=== PATIENT | female | born 1985 | race Caucasian/White ===

== ENCOUNTER 2024-08-07 07:03 | Day surgery (SDC) | payer MEDICAID ==
[2024-08-03 14:01] LABS: BASOPHILS # (AUTO) 0.1 X10'3 (0-0.2); BASOPHILS % (AUTO) 0.5 % (0-1); EOSINOPHILS # (AUTO) 0.1 X10'3 (0-0.9); EOSINOPHILS % (AUTO) 0.6 % (0-6); LYMPHOCYTES # (AUTO) 2.5 X10'3 (1.1-4.8); LYMPHOCYTES % (AUTO) 18.1 % (21-51); MEAN CORPUSCULAR HEMOGLOBIN 29.7 PG (27.0-31.0); MEAN CORPUSCULAR HGB CONC 32.5 g/dL (33.0-36.5); MEAN CORPUSCULAR VOLUME 91.2 FL (78-98); MEAN PLATELET VOLUME 7.7 FL (7.4-10.4); MONOCYTES # (AUTO) 0.8 X10'3 (0-0.9); MONOCYTES % (AUTO) 5.8 % (2-12); NEUTROPHILS # (AUTO) 10.3 X10'3 (1.8-7.7); PRE OP HEMATOCRIT 43.1 % (35.0-45.0); PRE OP PLATELET COUNT 298 X10'3 (140-440); PRE OP WHITE BLOOD COUNT 13.8 10'3 (4.8-10.8); RED BLOOD COUNT 4.73 X10'6 (4.20-5.60); RED CELL DISTRIBUTION WIDTH 13.4 % (11.5-14.5)
[2024-08-03 14:21] LABS: ALBUMIN 3.6 G/DL (3.4-5.0); ALKALINE PHOSPHATASE 46 IU/L (46-116); BLOOD UREA NITROGEN 25 MG/DL (7-18); BUN/CREATININE RATIO 23.8 (10.0-20.0); CHLORIDE 104 MMOL/L (99-107); CREATININE 1.05 MG/DL (0.40-0.90); PRE OP ALT 38 U/L (30-65); PRE OP ANION GAP 5 (8-16); PRE OP AST 19 U/L (10-37); PRE OP BILIRUB, TOTAL 0.2 MG/DL (0.0-1.0); PRE OP GLUCOSE 99 MG/DL (70-104); PRE OP POTASSIUM 4.3 MMOL/L (3.4-5.1); PRE OP SODIUM 142 MMOL/L (135-145); TOTAL CARBON DIOXIDE 33.5 MMOL/L (24-32); TOTAL PROTEIN 7.1 G/DL (6.4-8.2); eGFR 58 ML/MIN
[2024-08-03 14:32] LABS: HCG SERUM QL NEGATIVE
[~2024-08-07] VITALS: Ht 157.5 cm; Wt 75.5 kg
[2024-08-07] VITALS (9 sets, daily range): BP systolic 107–131; BP diastolic 62–85; PULSE 44–99; RESP 10–17; TEMP 98.1; O2SAT 94–100
[~2024-08-07 07:03] MED LIST: ASPI-611 PO; BUPIVAcaine 0.25% w/Epi /PF 30ml vial ONE; BUPIVAcaine 2.5mg/ml inj 50ml vial (contains preservative) ONE; CARV3.122 PO; CHOL200012 PO; DOCUMENT DATE & TIME OF BETA-BLOCKER PO ONE; FURO40TA4 PO; LEVO25CA4 PO; LIDOcaine 1% 30ml preserv. free vial ONE; LISI2.5T14 PO; LURA20TA8 PO; ROSU5TAB51 PO; SPIR25TA5 PO; VENL75TA90 PO; ceFAZolin 2gm in dextrose, iso 50 ML IV ONE
[2024-08-07] MEDS: famotidine 20mg tablet PO ONE (07:53)
[2024-08-07] MEDS: ringers solution, lacted 1,000 ML IV SCH (07:54)
[2024-08-07] MEDS: LIDOcaine 1% 30ml preserv. free vial IJ ONE (08:27)
[2024-08-07] MEDS ORDERED: sevoflurane 250ml liquid IH ONE (08:32)
[2024-08-07] MEDS ORDERED: hydrALAZINE 20mg/ml inj. IV PRN (08:35)
[2024-08-07] MEDS ORDERED: ondansetron/PF 4mg/2ml inj IV PRN (08:35)
[2024-08-07] MEDS ORDERED: meperidine/PF 25mg/ml syringe IV PRN (08:35)
[2024-08-07] MEDS ORDERED: ringers solution, lacted 1,000 ML IV SCH (08:35)
[2024-08-07] MEDS ORDERED: proCHLORperazine 10 MG/2 ml inj IV PRN (08:35)
[2024-08-07] MEDS ORDERED: labetalol 20mg/4ml (5mg/ml) syringe IV PRN (08:35)
[2024-08-07] MEDS ORDERED: acetaminophen 1,000mg/100ml IV 100 ML IV PRN (08:35)
[2024-08-07] MEDS ORDERED: HYDROmorphone/PF 0.2 MG/ML SYRINGE IV PRN ×4 (08:35)
[2024-08-07] MEDS ORDERED: fentaNYL/PF 50MCG/1 ML 2ML syringe ONE (08:37)
[2024-08-07] MEDS ORDERED: dexamethasone sod phosphate 4mg/ml inj. ONE ×2 (08:37→08:47)
[2024-08-07] MEDS ORDERED: LIDOcaine 2% (20mg/ml) 5ml vial ONE (08:46)
[2024-08-07] MEDS ORDERED: propofol inj 20 ML IV ONE (08:46)
[2024-08-07] MEDS ORDERED: midazolam 1 mg/ML 2ml injection ONE (08:46)
[2024-08-07] MEDS ORDERED: ondansetron/PF 4mg/2ml inj ONE (08:47)
[2024-08-07] MEDS: HYDROcodone/acetaminophen 10/325mg tab PO ONE (10:00)
== END 2024-08-07 10:38 | disposition home or self-care (01) ==
LOC: PAS 07:03
PROVIDERS: ATTEND Surgery
DX: N61.0 Mastitis without abscess (principal); R92.8 Other abnormal and inconclusive findings on diagnostic imaging of breast; F41.9 Anxiety disorder, unspecified; F32.A Depression, unspecified; I50.9 Heart failure, unspecified; E03.9 Hypothyroidism, unspecified; N60.02 Solitary cyst of left breast; Z79.899 Other long term (current) drug therapy; Z98.890 Other specified postprocedural states; Z87.891 Personal history of nicotine dependence
CPT/HCPCS: 19120; 36415; 80053; 82948; 84703; 85025; 93005; J0690; J1100; J2003; J2250; J2405; J2704; J3010; J3490; J7030; J7120; Z7506; Z7512; A4215; A4618; A6407; A6449; A7000; S0020